=== PATIENT | male | born 1980 | race Caucasian/White ===

== ENCOUNTER 2019-03-12 07:53 | Outpatient (CLI) | payer OTHER | END 2019-03-12 23:59 | disposition home or self-care (01) | LOC: WOUND 07:53 | PROVIDERS: ATTEND Family Medicine | DX: Z93.3 Colostomy status (principal); Z88.2 Allergy status to sulfonamides | CPT/HCPCS: 99204; 99214 ==

== ENCOUNTER 2019-03-12 09:54 | Outpatient (CLI) | payer OTHER | END 2019-03-12 23:59 | disposition home or self-care (01) | LOC: STAR 09:54 | PROVIDERS: ATTEND Surgery | DX: Z01.818 Encounter for other preprocedural examination (principal); I44.4 Left anterior fascicular block | CPT/HCPCS: 36415; 80053; 85025; 93005 ==

== ENCOUNTER 2019-03-17 06:15 | Inpatient (IN) | payer OTHER ==
[~2019-03-17] VITALS: Ht 175.3 cm; Wt 70.0 kg
[~2019-03-17 06:15] MED LIST: LOPE-114 PO; MILK150C2 PO; [UNRECOGNIZED DRUG - OTHER]
[2019-03-17] MEDS ORDERED: LACTATED RINGERS 1,000 ML IV SCH (07:00)
[2019-03-17 07:24] VITALS: BP 110/73
[2019-03-17] MEDS ORDERED: FENTANYL PF 250 MCG/5ML ONE (07:39)
[2019-03-17] MEDS ORDERED: MIDAZOLAM 1 MG/ML, 2ML ONE (07:39)
[2019-03-17] MEDS ORDERED: INDOCYANINE GREEN 25 MG VIAL ONE (07:43)
[2019-03-17] MEDS ORDERED: BUPIVACAINE/PF 0.5% ONE (07:43)
[2019-03-17] MEDS ORDERED: ACETAMINOPHEN 500 MG TABLET ONE ×2 (07:55→08:14)
[2019-03-17] MEDS ORDERED: SCOPOLAMINE PATCH, 1.5MG PATCH.TD72 TD ONE ×2 (07:55→08:14)
[2019-03-17] MEDS ORDERED: GABAPENTIN 300 MG CAPSULE ONE ×2 (07:56→08:14)
[2019-03-17] MEDS ORDERED: EPHEDRINE 50 MG/ML, 1ML ONE (08:14)
[2019-03-17] MEDS ORDERED: MEPERIDINE/PF 50 MG/ML ONE (11:46)
[2019-03-17] MEDS ORDERED: CEFAZOLIN 1,000 MG ONE (11:48)
[2019-03-17] MEDS ORDERED: ONDANSETRON 2MG/ML, 2ML ONE (11:48)
[2019-03-17] MEDS ORDERED: DEXAMETHASONE 4 MG/ML, 1ML ONE (11:48)
[2019-03-17] MEDS ORDERED: NEOSTIGMINE 1 MG/ML, 10ML ONE (11:48)
[2019-03-17] MEDS ORDERED: SUCCINYLCHOLINE 20 MG/ML, 10ML ONE (11:48)
[2019-03-17] MEDS ORDERED: PROPOFOL 10 MG/ML, 20ML ONE (11:48)
[2019-03-17] MEDS ORDERED: ROCURONIUM 10MG/ML,5ML ONE (11:48)
[2019-03-17] MEDS ORDERED: GLYCOPYRROLATE 0.2MG/1ML, 5ML ONE (11:48)
[2019-03-17] MEDS ORDERED: ROPIvacaine/PF 0.2%, 20 ML ONE ×3 (11:49)
[2019-03-17] MEDS: OXYcodone 5 MG/5 ML ORAL.SOL UDC PO PRN ×2 (12:10→12:20)
[2019-03-17] MEDS ORDERED: OXYcodone 5 MG/5 ML ORAL.SOL UDC ONE (12:19)
[2019-03-17] MEDS ORDERED: PROMETHAZINE 25 MG/ML, 1ML ONE (12:23)
[2019-03-17] MEDS ORDERED: MEPERIDINE/PF 25MG/0.5ML IVPush PRN (12:30)
[2019-03-17] MEDS ORDERED: PROMETHAZINE 25 MG/ML, 1ML IV PRN (12:30)
[2019-03-17] MEDS ORDERED: ACETAMINOPHEN 325 MG TABLET PO PRN (12:30)
[2019-03-17] MEDS: FENTANYL PF 100 MCG/2ML IV PRN ×4 (12:30→13:15)
[2019-03-17] MEDS ORDERED: KETOROLAC 30 MG/1 ML IV PRN (12:30)
[2019-03-17] MEDS ORDERED: LABETALOL 5MG/ML, 20ML IV PRN (12:30)
[2019-03-17] MEDS ORDERED: hydrALAzine 20 MG/ML, 1ML IV PRN (12:30)
[2019-03-17] MEDS ORDERED: DIAZEPAM 5 MG/ML, 2ML IVPush PRN (12:30)
[2019-03-17] MEDS ORDERED: ALBUTEROL SULFATE 2.5 MG/3 ML NPPB PRN (12:30)
[2019-03-17] MEDS ORDERED: HYDROmorphone 2 MG/ML, 1ML IVPush PRN (12:30)
[2019-03-17] MEDS ORDERED: FENTANYL PF 100 MCG/2ML ONE ×2 (12:31→13:22)
[2019-03-17] MEDS ORDERED: HALOPERIDOL 5 MG/ML ONE (13:26)
[2019-03-17] MEDS ORDERED: HALOPERIDOL 5 MG/ML IV PRN (13:30)
[2019-03-17 14:00] VITALS: BP 117/81
[2019-03-17] MEDS ORDERED: DIPHENHYDRAMINE 50 MG/ML, 1ML IVPush PRN (14:30)
[2019-03-17] MEDS ORDERED: HYDROmorphone 1 MG/ML, 1ML INJ IVPush PRN (14:30)
[2019-03-17] MEDS ORDERED: HALOPERIDOL 5 MG/ML IVPush PRN (14:30)
[2019-03-17] MEDS ORDERED: DIPHENHYDRAMINE 25 MG CAPSULE PO PRN (14:30)
[2019-03-17] MEDS ORDERED: DEXAMETHASONE 4 MG/ML, 1ML IVPush PRN (14:30)
[2019-03-17] MEDS ORDERED: SCOPOLAMINE PATCH, 1.5MG PATCH.TD72 TD PRN (14:30)
[2019-03-17] MEDS: D5%-0.45NACL+KCL 20MEQ 1,000 ML IV SCH (15:44)
[2019-03-17] MEDS: ACETAMINOPHEN 500 MG TABLET PO SCH ×2 (15:44→21:57)
[2019-03-17 20:35] VITALS: BP 109/69
[2019-03-17] MEDS: OXYcodone IR 5MG TABLET PO PRN (21:12)
[2019-03-18 00:26] VITALS: BP 120/73
[2019-03-18] MEDS: OXYcodone IR 5MG TABLET PO PRN (02:53)
[2019-03-18 04:11] LABS: BASOPHILS # (AUTO) 0.04 x10^3/uL (0-0.1); BASOPHILS % (AUTO) 0 % (0-1); EOSINOPHILS # (AUTO) 0.01 x10^3/uL (0-0.4); EOSINOPHILS % (AUTO) 0 % (1-7); LYMPHOCYTES % (AUTO) 10 % (22-44); MD NO; MEAN CORPUSCULAR HEMOGLOBIN 31.4 pg (27.5-34.5); MEAN CORPUSCULAR HGB CONC 33.7 g/dL (33.2-36.2); MEAN CORPUSCULAR VOLUME 93.1 fL (81-97); MEAN PLATELET VOLUME 8.2 fL (7.4-10.4); MONOCYTES # (AUTO) 1.24 x10^3/uL (0.2-0.8); MONOCYTES % (AUTO) 8 % (2-9); NEUTROPHILS # (AUTO) 12.93 x10^3/uL (1.8-6.8); NEUTROPHILS % (AUTO) 82 % (42-75); PLATELET COUNT 241 x10^3/uL (130-400); RED BLOOD COUNT 4.56 x10^6/uL (4.38-5.82); RED CELL DISTRIBUTION WIDTH 13.1 % (9.4-14.8)
[2019-03-18] MEDS: ACETAMINOPHEN 500 MG TABLET PO SCH ×4 (04:11→19:35)
[2019-03-18 04:14] LABS: ANION GAP 8 mmol/L (5-15); CALCIUM 8.4 mg/dL (8.5-10.1); CHLORIDE 106 mmol/L (98-107); CREATININE 1.16 mg/dL (0.7-1.3)
[2019-03-18] MEDS: D5%-0.45NACL+KCL 20MEQ 1,000 ML IV SCH ×2 (04:48→16:24)
[2019-03-18 07:56] VITALS: BP 112/68
[2019-03-18] MEDS: ENOXAPARIN 40 MG/0.4 ML SQ SCH (08:10)
[2019-03-18] MEDS: ONDANSETRON 2MG/ML, 2ML IV PRN ×3 (10:34→22:26)
[2019-03-18 14:15] VITALS: BP 115/72
[2019-03-18 20:12] VITALS: BP 111/72
[2019-03-19] MEDS: ACETAMINOPHEN 500 MG TABLET PO SCH ×4 (01:37→20:20)
[2019-03-19 03:38] LABS: MEAN CORPUSCULAR HEMOGLOBIN 31.3 pg (27.5-34.5); MEAN CORPUSCULAR HGB CONC 33.6 g/dL (33.2-36.2); MEAN CORPUSCULAR VOLUME 93.1 fL (81-97); MEAN PLATELET VOLUME 8.1 fL (7.4-10.4); PLATELET COUNT 257 x10^3/uL (130-400); RED BLOOD COUNT 4.68 x10^6/uL (4.38-5.82); RED CELL DISTRIBUTION WIDTH 13.4 % (9.4-14.8)
[2019-03-19 03:46] LABS: ANION GAP 5 mmol/L (5-15); CALCIUM 9.2 mg/dL (8.5-10.1); CHLORIDE 103 mmol/L (98-107)
[2019-03-19 03:53] LABS: BASOPHILS # (AUTO) 0.04 x10^3/uL (0-0.1); BASOPHILS % (AUTO) 0 % (0-1); EOSINOPHILS % (AUTO) 0 % (1-7); LYMPHOCYTES # (AUTO) 1.81 x10^3/uL (1-3.4); LYMPHOCYTES % (AUTO) 11 % (22-44); MD SCAN; MONOCYTES # (AUTO) 1.17 x10^3/uL (0.2-0.8); MONOCYTES % (AUTO) 7 % (2-9); NEUTROPHILS # (AUTO) 14.12 x10^3/uL (1.8-6.8); NEUTROPHILS % (AUTO) 82 % (42-75)
[2019-03-19 04:14] VITALS: BP 122/76
[2019-03-19] MEDS: ONDANSETRON 2MG/ML, 2ML IV PRN (05:57)
[2019-03-19 07:47] VITALS: BP 118/79
[2019-03-19] MEDS: ENOXAPARIN 40 MG/0.4 ML SQ SCH (09:45)
[2019-03-19] MEDS: D5%-0.45NACL+KCL 20MEQ 1,000 ML IV SCH ×2 (09:45→19:27)
[2019-03-19 14:11] VITALS: BP 116/73
[2019-03-19 18:46] VITALS: BP 120/76
[2019-03-20 02:33] VITALS: BP 113/74
[2019-03-20] MEDS: ACETAMINOPHEN 500 MG TABLET PO SCH ×4 (02:33→21:05)
[2019-03-20 02:58] LABS: BASOPHILS # (AUTO) 0.02 x10^3/uL (0-0.1); BASOPHILS % (AUTO) 0 % (0-1); EOSINOPHILS # (AUTO) 0.23 x10^3/uL (0-0.4); EOSINOPHILS % (AUTO) 2 % (1-7); LYMPHOCYTES # (AUTO) 1.83 x10^3/uL (1-3.4); LYMPHOCYTES % (AUTO) 13 % (22-44); MD NO; MEAN CORPUSCULAR HEMOGLOBIN 31.4 pg (27.5-34.5); MEAN CORPUSCULAR HGB CONC 33.4 g/dL (33.2-36.2); MEAN CORPUSCULAR VOLUME 93.9 fL (81-97); MEAN PLATELET VOLUME 7.9 fL (7.4-10.4); MONOCYTES # (AUTO) 0.34 x10^3/uL (0.2-0.8); MONOCYTES % (AUTO) 3 % (2-9); NEUTROPHILS # (AUTO) 11.39 x10^3/uL (1.8-6.8); NEUTROPHILS % (AUTO) 83 % (42-75); PLATELET COUNT 236 x10^3/uL (130-400); RED BLOOD COUNT 4.49 x10^6/uL (4.38-5.82); RED CELL DISTRIBUTION WIDTH 12.9 % (9.4-14.8)
[2019-03-20 03:04] LABS: ANION GAP 6 mmol/L (5-15); CHLORIDE 103 mmol/L (98-107); CREATININE 1.09 mg/dL (0.7-1.3)
[2019-03-20] MEDS: D5%-0.45NACL+KCL 20MEQ 1,000 ML IV SCH (05:00)
[2019-03-20] MEDS: ENOXAPARIN 40 MG/0.4 ML SQ SCH (08:16)
[2019-03-20 08:25] VITALS: BP 117/72
[2019-03-20] MEDS: DIPHENOXYLATE/ATROPINE TABLET PO SCH ×2 (12:01→21:05)
[2019-03-20 12:44] VITALS: BP 123/78
[2019-03-20 19:05] VITALS: BP 115/75
[2019-03-21 02:50] VITALS: BP 113/76
[2019-03-21] MEDS: ACETAMINOPHEN 500 MG TABLET PO SCH ×2 (02:51→08:17)
[2019-03-21 07:17] VITALS: BP 108/82
[2019-03-21] MEDS: DIPHENOXYLATE/ATROPINE TABLET PO SCH (08:17)
[2019-03-21] MEDS: ENOXAPARIN 40 MG/0.4 ML SQ SCH (08:17)
[2019-03-21] MEDS ORDERED: DIPH1TAB PO (11:37)
[2019-03-21] MEDS ORDERED: ENOX40SY4 SQ (11:38)
[2019-03-21 12:12] VITALS: BP 11/74
== END 2019-03-21 12:51 | disposition home or self-care (01) | DRG 330 ==
LOC: ORIP 06:15 → 4NOR 13:48
PROVIDERS: ADMIT Surgery; ATTEND Surgery
PROC: 0DBE4ZZ Excision of Large Intestine, Percutaneous Endoscopic Approach (ICD-10-PCS; 2019-03-17)
PROC: 8E0W4CZ Robotic Assisted Procedure of Trunk Region, Percutaneous Endoscopic Approach (ICD-10-PCS; 2019-03-17)
PROC: 0D1B4Z4 Bypass Ileum to Cutaneous, Percutaneous Endoscopic Approach (ICD-10-PCS; principal; 2019-03-17 08:00)
DX: D12.6 Benign neoplasm of colon, unspecified (principal); K51.30 Ulcerative (chronic) rectosigmoiditis without complications; Z80.1 Family history of malignant neoplasm of trachea, bronchus and lung; Z88.2 Allergy status to sulfonamides
CPT/HCPCS: 36415; 80048; 85025; 86850; 86900; 88307; G0378; J0690; J1100; J1650; J2175; J2250; J2405; J2550; J2704; J2710; J2795; J3010; J0330; J1200; J1630; J3480; J7120